=== PATIENT | female | born 1995 | race Two or more races ===

== ENCOUNTER 2020-01-16 21:51 | Emergency (ER) | payer SELFPAY ==
[~2020-01-16] VITALS: Ht 152.4 cm; Wt 127.0 kg
[2020-01-17 02:25] VITALS: BP 156/99
== END 2020-01-17 02:32 | disposition home or self-care (01) ==
LOC: ER 21:51
DX: S01.01XA Laceration without foreign body of scalp, initial encounter (principal); W22.8XXA Striking against or struck by other objects, initial encounter; Y93.89 Activity, other specified; Y92.89 Other specified places as the place of occurrence of the external cause; Y99.8 Other external cause status
CPT/HCPCS: 12002